=== PATIENT | male | born 1960 | race Caucasian/White ===

== ENCOUNTER → 2020-10-01 | Outpatient (CLI) | payer BC ==
--- NOTE | 2020-10-02 10:10 | CT ---
EXAMINATION TYPE: CT abdomen pelvis wo con DATE OF EXAM: 10/01/2020 COMPARISON: HISTORY: Rt side flank pain, possible kidney stone, inguinal lympadenopathy CT DLP: 1171 mGycm Automated exposure control for dose reduction was used. TECHNIQUE: Helical acquisition of images from the lung bases through the pelvis. FINDINGS: Lack of contrast may decrease sensitivity LUNG BASES: Minimal effusions are present. AORTA: No significant abnormality is appreciated. 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 Gallbladder is contracted.. PANCREAS: No significant abnormality is seen. SPLEEN: No significant abnormality is seen. ADRENALS: No significant abnormality is seen. KIDNEYS: Right renal mass is suspected measuring 5.6 cm punctate left renal calcifications are presen t, proximally 3 are noted REPRODUCTIVE ORGANS: prostate is enlarged, associated punctate calcification. URINARY BLADDER: There is a thickened wall present possibly due to chronic outlet obstruction, some punctate calcifications are present along the anterior wall. BOWEL: No significant abnormality is seen. FREE AIR: No Free Air is visible. ASCITES: None visible. PELVIC ADENOPATHY: None visualized. RETROPERITONEAL ADENOPATHY: No Retroperitoneal Adenopathy visible. OSSEOUS STRUCTURES: Degenerative disc changes are present especially in the lower lumbar spine, ther e is some associated facet arthropathy. Sclerotic rimmed lucency at the left sacroiliac joint within the ilium likely represents geode. IMPRESSION: FINDINGS ARE SUSPICIOUS FOR RIGHT RENAL MASS, CONSIDER RENAL CELL CARCINOMA, UROLOGY CONSULT. NONOBST RUCTIVE LEFT HYDRONEPHROSIS. ADDITIONAL FINDINGS ABOVE. Report relayed telephonically to the office o efe Baer at the time of interpretation via perfect serve.
== END | disposition home or self-care (01) ==
LOC: RADCTMAIN 18:18
PROVIDERS: ATTEND Family Medicine
DX: N20.0 Calculus of kidney (principal); K82.0 Obstruction of gallbladder; N40.0 Benign prostatic hyperplasia without lower urinary tract symptoms; N32.89 Other specified disorders of bladder; K76.89 Other specified diseases of liver
CPT/HCPCS: 74176

== ENCOUNTER → 2020-10-07 | Outpatient (CLI) | payer BC ==
--- NOTE | 2020-10-07 23:12 | CT ---
EXAMINATION TYPE: CT abdomen pelvis w con DATE OF EXAM: 10/07/2020 COMPARISON: 11/09/2020 INDICATION: Rt renal mass DLP: 1358 mGycm, Automated exposure control for dose reduction was used. CONTRAST: 100 mL of Isovue 300. Study performed with Oral Contrast TECHNIQUE: Axial images were obtained from above the diaphragm to the pubic rami in the axial plane a t 5 mm thick sections. Reconstructed images are reviewed on the computer in the coronal plane. FINDINGS: Limited CT sections are obtained the lung bases. The lung bases are clear. CT ABDOMEN: Liver: Multiple scattered small hypodensities within the liver may be small hepatic cysts. Spleen: Normal Pancreas: Normal Adrenal glands: The adrenal glands are normal. Gallbladder: Normal Kidneys: There is a 4.0 x 5.5 cm isodense mass within the right mid lateral kidney. This appears to w ashout is slightly greater rate than the renal cortex. This corresponds to the precontrast imaging on 10/01/2020. No hydronephrosis is present. No cysts are present. Delayed images were obtained thro ugh the kidneys. Aorta: Vascular calcification is within the aorta. Inferior vena cava: Normal. CT PELVIS: Loops of bowel within the abdomen and pelvis are normal. There are loops of bowel which are incom pletely distended or lack oral contrast limiting their evaluation. Appendix: Normal as visualized. Urinary bladder: Normal. Genitourinary structures: Prostate appears unremarkable Osseous structures: No suspicious lytic or sclerotic lesions. IMPRESSIONS: 1. 4.2 x 4.0 x 5.5 cm isodense mass within the mid lateral right kidney suspicious for neoplasm.
== END | disposition home or self-care (01) ==
LOC: RADCTMAIN 16:26
PROVIDERS: ATTEND Urology
DX: N28.89 Other specified disorders of kidney and ureter (principal); D41.01 Neoplasm of uncertain behavior of right kidney; Z88.2 Allergy status to sulfonamides
CPT/HCPCS: 74177; Q9967

== ENCOUNTER → 2020-11-02 | Outpatient (CLI) | payer BC ==
--- NOTE | 2020-11-02 21:21 | CT ---
EXAMINATION TYPE: CT chest w con DATE OF EXAM: 11/02/2020 COMPARISON: NONE HISTORY: ca staging, recent renal cancer dx CT DLP: 408.5 mGycm. Automated Exposure Control for Dose Reduction was Utilized. TECHNIQUE: CT scan of the thorax is performed following with IV Contrast, patient injected with 100 mL of Isovue 300. FINDINGS: LUNGS: Mild atelectatic change dependently in the bilateral lower lobes. No suspicious pulmonary no dules or masses. There is no pleural effusion or pneumothorax seen. The tracheobronchial tree is pat ent. MEDIASTINUM: There are no greater than 1 cm hilar or mediastinal lymph nodes. No cardiomegaly or pe ricardial effusion is seen. Two adjacent Subcentimeter left thyroid nodules coronal image 49 and 50 l ower pole level. OTHER: Contracted gallbladder. 2 mm nonobstructing calculus upper pole left kidney coronal image 55. IMPRESSION: No suspicious nodules or masses to suggest metastatic disease.
== END | disposition home or self-care (01) ==
LOC: RADCTMAIN 17:45
PROVIDERS: ATTEND Urology
DX: C64.9 Malignant neoplasm of unspecified kidney, except renal pelvis (principal); Z88.2 Allergy status to sulfonamides
CPT/HCPCS: 82565; 84520; 71260; 36415; Q9967

== ENCOUNTER → 2020-12-03 | Outpatient (CLI) | payer BC ==
[2020-12-03 10:06] LABS: Basophils # (A) 0.1 k/uL (0-0.2); Basophils % (A) 1 %; Eosinophils # (A) 0.1 k/uL (0-0.7); Eosinophils % (A) 2 %; HCT 53.4 % (39.0-53.0); HGB 17.6 gm/dL (13.0-17.5); Lymphocytes # (A) 1.5 k/uL (1.0-4.8); Lymphocytes % (A) 25 %; MCH 30.1 pg (25.0-35.0); MCV 91.2 fL (80.0-100.0); Mean Platelet Volume 8.2; Monocytes # (A) 0.4 k/uL (0-1.0); Monocytes % (A) 6 %; Neutrophils # (A) 3.9 k/uL (1.3-7.7); Neutrophils % (A) 65 %; Platelet Count 137 k/uL (150-450); RBC 5.85 m/uL (4.30-5.90); RDW 13.4 % (11.5-15.5); WBC 5.9 k/uL (3.8-10.6)
[2020-12-03 10:11] LABS: African American GFR (CKD) >90 (>60 ml/min/1.73 sqM); Anion Gap 7 mmol/L; Blood Urea Nitrogen 17 mg/dL (9-20); Calcium 8.7 mg/dL (8.4-10.2); Carbon Dioxide 24 mmol/L (22-30); Chloride 110 mmol/L (98-107); Glucose 112 mg/dL (74-99); Non-African American GFR(CKD) 82 (>60 ml/min/1.73 sqM); Potassium 4.7 mmol/L (3.5-5.1); Sodium 141 mmol/L (137-145)
--- NOTE | 2020-12-03 10:19 | XR ---
EXAMINATION TYPE: XR chest 2V DATE OF EXAM: 12/03/2020 COMPARISON: Correlation CT chest 11/02/2020 HISTORY: 60-year-old male preop before nephrectomy, kidney cancer. D41.01, Z01.818 TECHNIQUE: Frontal and lateral views FINDINGS: The cardiomediastinal silhouette, aorta, and pulmonary vasculature are within normal limits. Lungs an d pleural spaces are clear. IMPRESSION: No acute cardiopulmonary process.
== END | disposition home or self-care (01) ==
LOC: LABPAT 08:53
PROVIDERS: ATTEND Urology
DX: Z01.818 Encounter for other preprocedural examination (principal); D41.01 Neoplasm of uncertain behavior of right kidney; R53.83 Other fatigue
CPT/HCPCS: 36415; 71046; 80048; 85025; 93005

== ENCOUNTER 2020-12-10 10:26 | Inpatient (IN) | payer BC ==
[2020-12-02 11:07] VITALS: BMI 28.8
--- NOTE | 2020-12-09 22:07 | P.HPIHPCON ---
History of Present Illness H&P Date: 12/10/20 Chief Complaint: right renal mass Mr Guerra is a 60 yo female with hx of 5.5 cm right renal mass concerning for renal cell carcinoma. Discussed with him given the finding on CT it's highly concerning for renal cell carcinoma. Discussed with him based on review of CT nephron sparing surgery is not feasible. Discussed option of robotic radical nephrectomy vs open radical nephrectomy. Discussed the risk and benefit of each approach. He agreed to proceed with robotic right sided radical nephrectomy. Discussed the risk of bleeding, infection and injury to nearby organs. Discussed potential of need dialysis in the future. Also discussed potential this could be benign pathology. He understood all the risks and agreed to proceed with robotic assisted right radical nephrectomy. Consent for Procedure: I have explained the operation/procedure to the patient, including the risks, benefits, side effects, alternative therapies (including not receiving the proposed treatment or service), the likelihood of the patient achieving his/her goals, and potential recuperation problems for the procedure/sedation/analgesia, as well as any blood products, if indicated. I also explained to the patient the risks, benefits and side effects of the alternatives, as well as the risks related to not receiving the proposed procedure, care, treatment, or services. Past Medical History Past Medical History: Cancer, Prostate Disorder Additional Past Medical History / Comment(s): enlarged prostate, hx. kidney stones, rt kidney cancer History of Any Multi-Drug Resistant Organisms: None Reported Past Surgical History: Back Surgery Additional Past Surgical History / Comment(s): vasectomy reversal Past Anesthesia/Blood Transfusion Reactions: Previous Problems w/ Anesthesia Additional Past Anesthesia/Blood Transfusion Reaction / Comment(s): woke up too soon Smoking Status: Never smoker - Past Family History Mother Family Medical History: Cancer Father Family Medical History: Cancer Additional Family Medical History / Comment(s): pancreatic cancer age 60 Medications and Allergies Home Medications Medication Instructions Recorded Confirmed Type Doxazosin [Cardura] 4 mg PO HS 08/23/16 12/07/20 History Allergies Allergy/AdvReac Type Severity Reaction Status Date / Time Sulfa (Sulfonamide Allergy Rash/Hives, Verified 12/02/20 11:02 Antibiotics) shivering Surgical - Exam - General well developed, well nourished, no distress, no pain - Eyes PERRL, normal ocular movement - Respiratory normal expansion, normal respiratory effort Assessment and Plan Assessment: 60 yo male with right sided renal mass -OR for robotic radical nephrectomy on right
[~2020-12-10 10:26] MED LIST: DEXAMETHASONE SOD PHOSPHATE 4 MG/ML 1 ML VIAL IV ONE; LIDOCAINE 1% (10MG/ML) FOR IV START INTRADERMA PRN; ONDANSETRON 4 MG/2 ML VIAL IVP ONE; SCOPOLAMINE 1.5MG/72HR PATCH TRANSDERM ONE
[2020-12-10] MEDS: LACTATED RINGERS 1,000 ML IV SCH ×2 (11:05→11:06)
[2020-12-10] MEDS ORDERED: ROCURONIUM 10 MG/ML (10 ML VIAL) IV ONE (11:51)
[2020-12-10] MEDS ORDERED: MIDAZOLAM 2 MG/2 ML VIAL ONE (11:51)
[2020-12-10] MEDS ORDERED: NEOSTIGMINE 1 MG/ML 10 ML VIAL ONE (11:51)
[2020-12-10] MEDS ORDERED: HYDROmorphone (PF) 1 MG/ML ONE (11:51)
[2020-12-10] MEDS ORDERED: PROPOFOL 10 MG/ML 20 ML VIAL IV ONE (11:51)
[2020-12-10] MEDS ORDERED: GLYCOPYRROLATE 0.2 MG/ML 2 ML VIAL ONE (11:51)
[2020-12-10] MEDS ORDERED: fentaNYL (PF) 50 MCG/ML 2 ML AMP ONE (11:51)
[2020-12-10] MEDS ORDERED: LIDOCAINE 1% INJ 10MG/ML (20 ML MDV) ONE (11:51)
[2020-12-10] MEDS ORDERED: SUCCINYLCHOLINE CHLORIDE 100 MG/5 ML SYR IV ONE (11:51)
[2020-12-10] MEDS ORDERED: methocarbamoL 500 MG TAB PO PRN (12:05)
[2020-12-10] MEDS ORDERED: LIDOCAINE 2% INJ 20 MG/ML SQ ONE (13:08)
[2020-12-10] MEDS ORDERED: LACTATED RINGERS 1,000 ML IV ONE ×2 (14:33)
[2020-12-10] MEDS: HYDROmorphone 0.5 MG/0.5 ML SYRINGE IVP PRN ×3 (15:00→16:15)
[2020-12-10] MEDS: HEPARIN SODIUM,PORCINE 5,000 UNIT/ML 1 ML VIAL SQ SCH (17:39)
[2020-12-10] MEDS: D5-0.45% NACL WITH KCL 20MEQ/L 1,000 ML IV SCH (19:31)
[2020-12-10] MEDS: HYDROcodone/APAP 5-325MG 1 EACH TAB PO PRN (20:53)
[2020-12-10] MEDS ORDERED: DOXAZOSIN 4 MG TAB PO SCH (21:00)
[2020-12-11] MEDS: HEPARIN SODIUM,PORCINE 5,000 UNIT/ML 1 ML VIAL SQ SCH ×2 (00:19→08:07)
[2020-12-11] MEDS: D5-0.45% NACL WITH KCL 20MEQ/L 1,000 ML IV SCH ×2 (03:19→07:57)
[2020-12-11 06:41] LABS: HGB 15.7 gm/dL (13.0-17.5); MCH 30.3 pg (25.0-35.0); Mean Platelet Volume 8.1; Platelet Count 119 k/uL (150-450); RBC 5.17 m/uL (4.30-5.90); RDW 13.3 % (11.5-15.5); WBC 9.8 k/uL (3.8-10.6)
[2020-12-11 07:38] VITALS: BP 128/70; PULSE 56; RESP 17; TEMP 98.7
[2020-12-11] MEDS: HYDROcodone/APAP 5-325MG 1 EACH TAB PO PRN (08:09)
[2020-12-11 09:12] LABS: African American GFR (CKD) 50 (>60 ml/min/1.73 sqM); Anion Gap 4 mmol/L; Blood Urea Nitrogen 17 mg/dL (9-20); Calcium 8.2 mg/dL (8.4-10.2); Carbon Dioxide 27 mmol/L (22-30); Chloride 106 mmol/L (98-107); Glucose 131 mg/dL (74-99); Non-African American GFR(CKD) 43 (>60 ml/min/1.73 sqM); Potassium 4.1 mmol/L (3.5-5.1); Sodium 137 mmol/L (137-145)
--- NOTE | 2020-12-11 12:54 | P.DS ---
Providers Date of admission: 12/10/20 10:26 Attending physician: Dakota Guerra MD Primary care physician: [facility] Course: 60-year-old male with history of right-sided renal mass. He underwent a robotic-assisted laparoscopic right radical nephrectomy on December 10. He was admitted to the floor postoperatively. Please see op note dated December 10 for full surgery details. He had an uneventful postoperative course. His catheter was removed on postoperative day #1. He was discharged home on postop day #1. At time of discharge he was tolerating a diet, ambulating, pain was well- controlled, his abdominal examination and incision was benign. Plan - Discharge Summary Discharge Rx Participant: No New Discharge Prescriptions: New HYDROcodone/APAP 5-325MG [[place] 5-325] 1 tab PO Q6HR PRN 3 Days #12 tab PRN Reason: Pain methocarbamoL [Robaxin] 750 mg PO QID PRN #15 tab PRN Reason: Pain No Action Doxazosin [Cardura] 4 mg PO HS Discharge Medication List Doxazosin [Cardura] 4 mg PO HS 08/23/16 [History] HYDROcodone/APAP 5-325MG [[place] 5-325] 1 tab PO Q6HR PRN 3 Days #12 tab 12/11/20 [Rx] methocarbamoL [Robaxin] 750 mg PO QID PRN #15 tab 12/11/20 [Rx] Follow up Appointment(s)/Referral(s): Dakota Guerra MD [STAFF PHYSICIAN] - 10 Days Patient Instructions/Handouts: Pain Management After Surgery (DC), Laparoscopic Radical Nephrectomy (DC) Activity/Diet/Wound Care/Special Instructions: No heavy lifting or straining for 4 weeks You may shower tomorrow, no baths Increase fluid intake Discharge Disposition: HOME SELF-CARE
== END 2020-12-11 13:05 | disposition home or self-care (01) | DRG 658 ==
LOC: 2ORMAIN 10:26 → 4SSUR 16:46
PROVIDERS: ADMIT Urology; ATTEND Urology
PROC: 0TT04ZZ Resection of Right Kidney, Percutaneous Endoscopic Approach (ICD-10-PCS; principal; 2020-12-10 11:30)
PROC: 8E0W4CZ Robotic Assisted Procedure of Trunk Region, Percutaneous Endoscopic Approach (ICD-10-PCS; principal; 2020-12-10 11:30)
DX: C64.1 Malignant neoplasm of right kidney, except renal pelvis (principal); C61 Malignant neoplasm of prostate; Z79.899 Other long term (current) drug therapy; Z88.2 Allergy status to sulfonamides; Z98.890 Other specified postprocedural states; Z87.442 Personal history of urinary calculi; Z80.8 Family history of malignant neoplasm of other organs or systems
CPT/HCPCS: 80048; 85027; 86850; 86900; 86901; 88307

== ENCOUNTER 2020-12-12 05:40 | Emergency (ER) | payer BC ==
[2020-12-12 05:45] VITALS: TEMP 98
--- NOTE | 2020-12-12 06:38 | ED ---
Male Urogenital HPI - General Chief complaint: Urogenital Stated complaint: Urogenital Time Seen by Provider: 12/12/20 06:06 Source: patient, RN notes reviewed Mode of arrival: ambulatory Limitations: no limitations - History of Present Illness Initial comments: Patient is a 60-year-old male status post right radical nephrectomy. He stated that he had his surgery this past . He reported that he did have indwelling catheters in. Stated that last night he sat on the toilet for 6 hours trying to urinate with no luck. He reported a history of enlarged prostate. He said that he regularly wakes up at night and has to sit for a few minutes to be over the bathroom last night was different. She reported some suprapubic discomfort this morning. But had instant relief once catheter was inserted by nurse. Patient's surgical incisions look good with no signs or symptoms of infection She denied any pain post catheter insertion, fever, chil ls, fatigue, chest pain, shortness of breath, altered mental status, nausea, vomiting, diarrhea, constipation, dysuria. - Related Data Home Medications Medication Instructions Recorded Confirmed Doxazosin [Cardura] 4 mg PO HS 08/23/12/10/20 Previous Rx's Medication Instructions Recorded HYDROcodone/APAP 5-325MG [[place] 1 tab PO Q6HR PRN 3 Days #12 tab 12/11/20 5-325] methocarbamoL [Robaxin] 750 mg PO QID PRN #15 tab 12/11/20 Allergies Allergy/AdvReac Type Severity Reaction Status Date / Time Sulfa (Sulfonamide Allergy Rash/Hives, Verified 12/12/20 05:46 Antibiotics) shivering Review of Systems ROS Statement: Those systems with pertinent positive or pertinent negative responses have been documented in the HPI. ROS Other: All systems not noted in ROS Statement are negative. Past Medical History Past Medical History: Cancer, Prostate Disorder Additional Past Medical History / Comment(s): enlarged prostate, hx. kidney stones, rt kidney cancer History of Any Multi-Drug Resistant Organisms: None Reported Past Surgical History: Back Surgery Additional Past Surgical History / Comment(s): vasectomy reversal, right kidney removed Past Anesthesia/Blood Transfusion Reactions: Previous Problems w/ Anesthesia Additional Past Anesthesia/Blood Transfusion Reaction / Comment(s): woke up too soon Past Psychological History: No Psychological Hx Reported Smoking Status: Never smoker Past Alcohol Use History: None Reported Past Drug Use History: None Reported - Past Family History Mother Family Medical History: Cancer Father Family Medical History: Cancer Additional Family Medical History / Comment(s): pancreatic cancer age 60 General Exam Limitations: no limitations General appearance: alert, in no apparent distress Head exam: Present: atraumatic, normocephalic, normal inspection Eye exam: Present: normal appearance, PERRL, EOMI. Absent: scleral icterus, conjunctival injection, periorbital swelling ENT exam: Present: normal exam, mucous membranes moist Neck exam: Present: normal inspection. Absent: tenderness, meningismus, lymphadenopathy Respiratory exam: Present: normal lung sounds bilaterally. Absent: respiratory distress, wheezes, rales, rhonchi, stridor Cardiovascular Exam: Present: regular rate, normal rhythm, normal heart sounds. Absent: systolic murmur, diastolic murmur, rubs, gallop, clicks GI/Abdominal exam: Present: soft, normal bowel sounds. Absent: distended, tenderness, guarding, rebound, rigid exam: Present: normal inspection Extremities exam: Present: normal inspection, full ROM, normal capillary refill. Absent: tenderness, pedal edema, joint swelling, calf tenderness Psychiatric exam: Present: normal affect, normal mood Skin exam: Present: other (Surgical incisionsunder symptoms of infection on abdomen) Course Vital Signs 12/12/20 12/12/20 05:43 06:53 Temperature 98 F Pulse Rate 120 H 89 Respiratory 19 Rate Blood Pressure 112/70 O2 Sat by Pulse 98 Oximetry Medical Decision Making - Medical Decision Making 60-year-old male status post right radical nephrectomy. Catheter inserted. UA collected and sent for analysis. CBC CMP ordered. General surgery consult and for follow-up due to issues 2 days post surgery. General surgery noted to send patient home with [place] and leg bag and to follow- up with surgeon on Monday. - Lab Data Result diagrams: 12/12/20 06:53 12/12/20 06:53 Lab Results 12/12/20 12/12/20 12/12/20 Range/Units 06:31 06:53 06:53 WBC 8.6 (3.8-10.6) k/uL RBC 5.35 (4.30-5.90) m/uL Hgb 16.1 (13.0-17.5) gm/dL Hct 47.1 (39.0-53.0) % MCV 88.0 (80.0-100.0) fL MCH 30.1 (25.0-35.0) pg MCHC 34.3 (31.0-37.0) g/dL RDW 13.2 (11.5-15.5) % Plt Count 122 L (150-450) k/uL MPV 8.2 Neutrophils % 83 % Lymphocytes % 8 % Monocytes % 7 % Eosinophils % 1 % Basophils % 1 % Neutrophils # 7.1 (1.3-7.7) k/uL Lymphocytes # 0.7 L (1.0-4.8) k/uL Monocytes # 0.6 (0-1.0) k/uL Eosinophils # 0.1 (0-0.7) k/uL Basophils # 0.1 (0-0.2) k/uL Sodium 137 (137-145) mmol/L Potassium 4.2 (3.5-5.1) mmol/L Chloride 105 (98-107) mmol/L Carbon Dioxide 26 (22-30) mmol/L Anion Gap 6 mmol/L BUN 22 H (9-20) mg/dL Creatinine 1.64 H (0.66-1.25) mg/dL Est GFR (CKD-EPI)AfAm 51 (>60 ml/min/1.73 sqM) Est GFR (CKD-EPI)NonAf 45 (>60 ml/min/1.73 sqM) Glucose 137 H (74-99) mg/dL Calcium 8.7 (8.4-10.2) mg/dL Total Bilirubin 1.3 (0.2-1.3) mg/dL AST 28 (17-59) U/L ALT 28 (4-49) U/L Alkaline Phosphatase 48 (38-126) U/L Total Protein 6.8 (6.3-8.2) g/dL Albumin 3.8 (3.5-5.0) g/dL Urine Color Yellow Urine Appearance Clear (Clear) Urine pH 5.5 (5.0-8.0) Ur Specific Mathews 1.014 (1.001-1.035) Urine Protein Trace H (Negative) Urine Glucose (UA) Negative (Negative) Urine Ketones 1+ H (Negative) Urine Blood Large H (Negative) Urine Nitrite Negative (Negative) Urine Bilirubin Negative (Negative) Urine Urobilinogen <2.0 (<2.0) mg/dL Ur Leukocyte Esterase Negative (Negative) Urine RBC 7 H (0-5) /hpf Urine WBC 2 (0-5) /hpf Urine Bacteria Rare H (None) /hpf Urine Mucus Rare H (None) /hpf Disposition Clinical Impression: Acute retention of urine, Benign prostatic hyperplasia with urinary obstruction and other lower urinary tract symptoms Disposition: HOME SELF-CARE Instructions (If sedation given, give patient instructions): Urinary Retention in Men (ED), [place] Catheter Placement and Care (ED) Additional Instructions: The patient instructed to come back to ER if symptoms worsen. Patient instructed to follow-up with general surgeon on Monday. Keep [place] with leg bag in until Monday The patient instructed on how to use this leg bag. Is patient prescribed a controlled substance at d/c from ED?: No Referrals: Jonathon Baer MD [Primary Care Provider] - 1-2 days Dakota Guerra MD [STAFF PHYSICIAN] - 1-2 days
[2020-12-12 06:46] LABS: Appearance,Urine Clear (Clear); Bacteria,Urine Rare /hpf; Bilirubin,Urine Negative (Negative); Blood,Urine Large (Negative); Color,Urine Yellow; Glucose,Urine (UA) Negative (Negative); Ketones,Urine 1+ (Negative); Leukocyte Esterase,Urine Negative (Negative); Mucus,Urine Rare /hpf; Nitrite,Urine Negative (Negative); PH, Urine 5.5 (5.0-8.0); Protein,Urine Trace (Negative); RBC,Urine 7 /hpf (0-5); Specific Gravity,Urine 1.014 (1.001-1.035); Urobilinogen,Urine <2.0 mg/dL (<2.0); WBC,Urine 2 /hpf (0-5)
[2020-12-12 07:09] LABS: Basophils # (A) 0.1 k/uL (0-0.2); Basophils % (A) 1 %; Eosinophils # (A) 0.1 k/uL (0-0.7); Eosinophils % (A) 1 %; HCT 47.1 % (39.0-53.0); HGB 16.1 gm/dL (13.0-17.5); Lymphocytes # (A) 0.7 k/uL (1.0-4.8); Lymphocytes % (A) 8 %; MCH 30.1 pg (25.0-35.0); MCHC 34.3 g/dL (31.0-37.0); Mean Platelet Volume 8.2; Monocytes # (A) 0.6 k/uL (0-1.0); Monocytes % (A) 7 %; Neutrophils # (A) 7.1 k/uL (1.3-7.7); Neutrophils % (A) 83 %; Platelet Count 122 k/uL (150-450); RBC 5.35 m/uL (4.30-5.90); RDW 13.2 % (11.5-15.5); WBC 8.6 k/uL (3.8-10.6)
[2020-12-12 07:25] LABS: Albumin 3.8 g/dL (3.5-5.0); Calcium 8.7 mg/dL (8.4-10.2); Potassium 4.2 mmol/L (3.5-5.1); Total Bilirubin 1.3 mg/dL (0.2-1.3); Total Protein 6.8 g/dL (6.3-8.2)
[2020-12-12 08:00] VITALS: BP 147/85; PULSE 72; RESP 18
== END 2020-12-12 08:11 | disposition home or self-care (01) ==
LOC: EC 05:40
DX: N40.1 Benign prostatic hyperplasia with lower urinary tract symptoms (principal); N13.8 Other obstructive and reflux uropathy; R33.8 Other retention of urine; Z79.899 Other long term (current) drug therapy; Z88.2 Allergy status to sulfonamides; Z85.528 Personal history of other malignant neoplasm of kidney; Z90.5 Acquired absence of kidney
CPT/HCPCS: 36415; 51702; 80053; 81001; 85025; 99283

== ENCOUNTER → 2021-06-07 | Outpatient (CLI) | payer BC ==
--- NOTE | 2021-06-08 08:00 | XR ---
EXAMINATION TYPE: XR chest 2V DATE OF EXAM: 06/07/2021 COMPARISON: 12/03/2020 INDICATION: Neoplasm of kidney TECHNIQUE: Frontal and lateral views of the chest are obtained. FINDINGS: The heart size is normal. The pulmonary vasculature is normal. The lungs are clear. IMPRESSION: 1. No acute pulmonary process.
--- NOTE | 2021-06-08 22:31 | CT ---
EXAMINATION TYPE: CT abdomen pelvis wo con DATE OF EXAM: 06/07/2021 COMPARISON: 10/07/2020 INDICATION: Neoplasm of kidney DLP: 919 2 mGycm, Automated exposure control for dose reduction was used. CONTRAST: 0 mL of Isovue 300. Study performed with Oral Contrast TECHNIQUE: Axial images were obtained from above the diaphragm to the pubic rami in the axial plane a t 5 mm thick sections. Reconstructed images are reviewed on the computer in the coronal plane. FINDINGS: Limited CT sections are obtained the lung bases. The lung bases are clear. Some coronary artery nadege cification is present. CT ABDOMEN: Liver: Couple small cysts or the superior right lobe liver and within the anterior right lobe liver. A cyst is adjacent to the gallbladder fossa. This measures 2 cm. Spleen: Normal Pancreas: Normal Adrenal glands: The adrenal glands are normal. Gallbladder: Normal Kidneys: No masses are evident. No hydronephrosis is present. No cysts are present. There is a 0.2 cm nonobstructing stone at the superior pole left kidney. Very subtle calcifications at the cortical medullary junction of the posterior mid to inferior left kidney. Right kidney is absent. No recurren t masses in the renal bed are evident. Aorta: Vascular calcification is within the aorta. Inferior vena cava: Flattened which can be related to patient volume status Limited CT PELVIS: Loops of bowel within the abdomen and pelvis are normal. There are loops of bowel which are incom pletely distended or lack oral contrast limiting their evaluation. Appendix: Normal as visualized. Osseous structures: No suspicious lytic or sclerotic lesions. There is a well-circumscribed lytic are a adjacent to the left sacroiliac joint within the iliac wing. Facet degenerative changes are present . No suspicious expansile lesions are identified. IMPRESSIONS: 1. No suspicious changes for metastatic or recurrent renal neoplasia.
== END | disposition home or self-care (01) ==
LOC: RADCTMAIN 16:53
PROVIDERS: ATTEND Urology
DX: C64.9 Malignant neoplasm of unspecified kidney, except renal pelvis (principal)
CPT/HCPCS: 36415; 71046; 74150; 74176; 82565; 84520

== ENCOUNTER → 2021-06-21 | Outpatient (CLI) | payer BC ==
[2021-06-21 16:12] LABS: African American GFR (CKD) 62.4 (60.0-200.0); Non-African American GFR(CKD) 53.8 (60.0-200.0)
[2021-06-21 16:21] LABS: Prostate Specific Antigen 6.9 ng/mL (0.0-4.5)
== END | disposition home or self-care (01) ==
LOC: LABWHC1 08:49
PROVIDERS: ATTEND Urology
DX: C64.9 Malignant neoplasm of unspecified kidney, except renal pelvis (principal)
CPT/HCPCS: 36415; 82565; 84153; 84520

== ENCOUNTER → 2021-12-17 | Outpatient (CLI) | payer BC ==
--- NOTE | 2021-12-17 15:20 | US ---
EXAMINATION TYPE: US groin RT DATE OF EXAM: 12/17/2021 COMPARISON: NONE CLINICAL HISTORY: R19.00 Groin mass, K40.90 R inguinal hernia. Patient presents with two palpable are as in the right groin. Patient states one has been there for over a year and doesn't feel that it has increased in size. Patient had right kidney removed last year due to carcinoma; patient was worrisom e that this was correlated to renal carcinoma. Ordering physician requested to scan at lump as well as assess for inguinal hernia. Scanned right groin at area of palpables; two slightly hyperechoic tissue areas that represent possib le lipomas measuring (1): 3.1 x 0.8 x 1.8 cm and (2): 1.3 x 0.6 x 1.0 cm. No evidence of inguinal hernia IMPRESSION: 1. Findings appear more suggestive for subcutaneous lipomas. Correlate with the clinical findings. 2. Inguinal adenopathy is not identified. 3. No suspicious inguinal hernia.
== END | disposition home or self-care (01) ==
LOC: RADUSWWP 14:45
PROVIDERS: ATTEND Family Medicine
DX: K40.90 Unilateral inguinal hernia, without obstruction or gangrene, not specified as recurrent (principal); R19.00 Intra-abdominal and pelvic swelling, mass and lump, unspecified site

== ENCOUNTER → 2022-02-28 | Outpatient (CLI) | payer BC ==
[2022-02-28 22:57] LABS: African American GFR (CKD) 56.6 (60.0-200.0); Blood Urea Nitrogen 22.1 mg/dL (9.0-27.0); Non-African American GFR(CKD) 48.8 (60.0-200.0)
== END | disposition home or self-care (01) ==
LOC: LABWHC1 15:18
PROVIDERS: ATTEND Orthopaedic Surgery Orthopaedic Surgery of the Spine
DX: M54.16 Radiculopathy, lumbar region (principal); M79.18 Myalgia, other site; R53.1 Weakness; M51.36 Other intervertebral disc degeneration, lumbar region
CPT/HCPCS: 36415; 82565; 84520

== ENCOUNTER → 2022-06-22 | Outpatient (CLI) | payer BC | END | disposition home or self-care (01) | LOC: LABWHC1 10:45 | PROVIDERS: ATTEND Urology | DX: R97.20 Elevated prostate specific antigen [PSA] (principal) | CPT/HCPCS: 36415; 84153 ==

== ENCOUNTER → 2022-06-23 | Outpatient (CLI) | payer BC ==
--- NOTE | 2022-06-23 16:33 | XR ---
EXAMINATION TYPE: XR chest 2V DATE OF EXAM: 06/23/2022 4:28 PM COMPARISON: Chest radiographs from 06/07/2021. TECHNIQUE: XR chest 2V Frontal and lateral views of the chest. CLINICAL INDICATION:Male, 61 years old with history of C64.9 MALIGNANT NEOPLASM OF UNSP KIDNEY, EXCEP T RE; FINDINGS: Lungs/Pleura: There is no evidence of pleural effusion, focal consolidation, or pneumothorax. Pulmonary vascularity: Unremarkable. Heart/mediastinum: Cardiomediastinal silhouette is unremarkable. Musculoskeletal: No acute osseous pathology. IMPRESSION: No acute cardiopulmonary disease/process.
--- NOTE | 2022-06-23 16:55 | CT ---
EXAMINATION TYPE: CT abdomen pelvis wo con CT DLP: 774.10 mGycm, Automated exposure control for dose reduction was used. DATE OF EXAM: 06/23/2022 4:22 PM COMPARISON: CT abdomen pelvis most recent from 06/07/2021 . CLINICAL INDICATION:Male, 61 years old with history of C64.9 MALIGNANT NEOPLASM OF UNSP KIDNEY, EXCEP T RE; hx of RT kidney ca and removal TECHNIQUE: Standard CT of the abdomen and pelvis without IV or oral contrast. Lack of IV or oral co ntrast limits evaluation of solid and hollow organ viscera. Coronal and sagittal reformats were perfo rmed. FINDINGS: LOWER CHEST: Coronary artery calcification. Lung bases are clear. ABDOMEN LIVER: Multiple subcentimeter hypodensities within the liver are stable and too small accurately day acterize. Stable cyst adjacent to the gallbladder measuring up to 2 cm. GALLBLADDER AND BILE DUCTS: Unremarkable. PANCREAS: Unremarkable noncontrast appearance. SPLEEN: Unremarkable noncontrast appearance. ADRENAL GLANDS: Unremarkable noncontrast appearance. KIDNEYS AND URETERS: Postsurgical changes from right nephrectomy. No suspicious soft tissue in the ne phrectomy bed to suggest local recurrence. No hydronephrosis involving the left kidney. Nonobstructi ve left renal calculi measuring up to 2 mm. PELVIS BLADDER: Incompletely distended but grossly unremarkable. REPRODUCTIVE: Prostate is enlarged in size measuring 6.6 cm in transverse dimension. ABDOMEN & PELVIS STOMACH AND BOWEL: Stomach and duodenum are unremarkable. No focal wall thickening or surrounding inf lammatory changes. The appendix is within normal limits. No evidence of bowel obstruction. PERITONEUM: No evidence of pneumoperitoneum or free fluid. VASCULATURE: Mild atherosclerotic calcifications are present throughout the abdominal aorta and its b ranches. No evidence of aortic aneurysm. MUSCULOSKELETAL: No acute osseous abnormalities. No suspicious osseous lesions. Degenerative changes of visualized spine most pronounced at L4-L5. LYMPH NODES: No gross evidence for lymphadenopathy. SOFT TISSUE/ABDOMINAL WALL: Small fat filled umbilical hernia. IMPRESSION: Postsurgical changes from right nephrectomy without evidence for local recurrence or metastatic disea se.
== END | disposition home or self-care (01) ==
LOC: RADCTMAIN 16:00
PROVIDERS: ATTEND Urology
DX: C64.9 Malignant neoplasm of unspecified kidney, except renal pelvis (principal)
CPT/HCPCS: 71046; 74176

== ENCOUNTER → 2023-05-31 | Outpatient (CLI) | payer BC ==
--- NOTE | 2023-06-01 07:55 | XR ---
EXAMINATION TYPE: XR chest 2V DATE OF EXAM: 05/31/2023 4:32 PM COMPARISON: Chest radiographs from 12/29/2022 TECHNIQUE: XR chest 2V Frontal and lateral views of the chest. CLINICAL INDICATION:Male, 62 years old with history of C64.1; FINDINGS: Lungs/Pleura: There is no evidence of pleural effusion, focal consolidation, or pneumothorax. Pulmonary vascularity: Unremarkable. Heart/mediastinum: Cardiomediastinal silhouette is unremarkable. Musculoskeletal: No acute osseous pathology. IMPRESSION: No acute cardiopulmonary disease/process. No significant change from prior examination.
--- NOTE | 2023-06-01 10:40 | CT ---
EXAMINATION TYPE: CT abdomen pelvis wo con DATE OF EXAM: 05/31/2023 COMPARISON: 06/23/2022, 10/01/2020 HISTORY: right side renal ca. CT DLP: 718.1 mGycm Automated exposure control for dose reduction was used. TECHNIQUE: Helical acquisition of images was performed from the lung bases through the pelvis. FINDINGS: LUNG BASES: No significant abnormality is appreciated. LIVER/GB: Multiple subcentimeter hypodensities within the liver are stable and too small accurately c haracterize. Stable cyst adjacent to the gallbladder measuring up to 2 cm. PANCREAS: No significant abnormality is seen. SPLEEN: No significant abnormality is seen. ADRENALS: No significant abnormality is seen. KIDNEYS: Postsurgical changes from right nephrectomy. No suspicious soft tissue in the nephrectomy be d to suggest local recurrence Left kidney demonstrates no hydronephrosis. Nonobstructive two left renal calculi measuring up to 2 m m. ADENOPATHY: None visualized. OSSEOUS STRUCTURES: Multilevel hypertrophic and degenerative change. No destructive lesions. Stable w ell-circumscribed lucent lesion in the left iliac bone unchanged dating back to multiple prior exams including 10/01/2020 and therefore likely benign. Hip arthropathy. BOWEL: No significant abnormality is seen. Small hiatal hernia. OTHER: Prostate is markedly enlarged measuring 6.6 cm in greatest axis. Bladder wall is thickened and contains a calcification anteriorly. Bladder is nondistended. IMPRESSION: 1. POSTSURGICAL CHANGES COMPATIBLE WITH PRIOR RIGHT NEPHRECTOMY WITH NO EVIDENCE OF RECURRENT DISEASE OR METASTASES. 2. SMALL BLADDER CALCULUS WITH MILD BLADDER WALL THICKENING CORRELATE FOR CYSTITIS. 3. MARKED PROSTATE ENLARGEMENT.
== END | disposition home or self-care (01) ==
LOC: RADCTMAIN 16:06
PROVIDERS: ATTEND Urology
DX: C64.1 Malignant neoplasm of right kidney, except renal pelvis (principal); N40.0 Benign prostatic hyperplasia without lower urinary tract symptoms; N21.0 Calculus in bladder; Z90.5 Acquired absence of kidney; Z98.890 Other specified postprocedural states
CPT/HCPCS: 71046; 74176

== ENCOUNTER → 2023-06-01 | Outpatient (CLI) | payer BC | END | disposition home or self-care (01) | LOC: LABWHC1 11:43 | PROVIDERS: ATTEND Urology | DX: C64.1 Malignant neoplasm of right kidney, except renal pelvis (principal) | CPT/HCPCS: 36415; 84153 ==

== ENCOUNTER → 2023-06-26 | Outpatient (CLI) | payer BC ==
--- NOTE | 2023-06-26 13:47 | US ---
EXAMINATION TYPE: US venous doppler duplex LE LT DATE OF EXAM: 06/26/2023 9:07 AM COMPARISON: NONE CLINICAL INDICATION: Male, 62 years old with history of I82.402 ACUTE EMBOLISM AND THROMBOSIS UNSP D EEP VEIN; HX of DVT on blood thinners. SIDE PERFORMED: Left TECHNIQUE: The lower extremity deep venous system is examined utilizing real time linear array sonog goyo with graded compression, doppler sonography and color-flow sonography. VESSELS IMAGED: Common Femoral Vein Deep Femoral Vein Greater Saphenous Vein * Femoral Vein Popliteal Vein Small Saphenous Vein * Proximal Calf Veins (* superficial vessels) Left Leg: Chronic DVT still visualized distal Femoral Vein extending into Popliteal Vein. IMPRESSION: Chronic DVT still visualized distal Femoral Vein extending into Popliteal Vein. Findings similar to .
== END | disposition home or self-care (01) ==
LOC: RADUSWWP 08:50
PROVIDERS: ATTEND Family Medicine
DX: I82.512 Chronic embolism and thrombosis of left femoral vein (principal); I82.532 Chronic embolism and thrombosis of left popliteal vein; I82.402 Acute embolism and thrombosis of unspecified deep veins of left lower extremity

== ENCOUNTER → 2023-11-15 | Outpatient (CLI) | payer BC ==
[2023-11-15 19:14] LABS: Basophils # (A) 0.04 X 10*3/uL (0.00-0.10); Basophils % (A) 0.7 %; Eosinophils # (A) 0.14 X 10*3/uL (0.04-0.35); Eosinophils % (A) 2.4 %; HCT 49.6 % (39.6-50.0); HGB 16.1 g/dL (13.0-17.0); Lymphocytes # (A) 1.47 X 10*3/uL (0.90-5.00); Lymphocytes % (A) 24.8 %; MCH 29.4 pg (27.0-32.0); MCHC 32.5 g/dL (32.0-37.0); MCV 90.7 FL (80.0-97.0); Mean Platelet Volume 11.1 FL (9.5-12.2); Monocytes # (A) 0.44 X 10*3/uL (0.20-1.00); Monocytes % (A) 7.4 %; NRBC Per 100 WBC 0 X 10*3/uL (0.00-0.01); Neutrophils # (A) 3.82 X 10*3/uL (1.80-7.70); Neutrophils % (A) 64.4 %; Platelet Count 147 X 10*3/uL (140-440); RBC 5.47 X 10*6/uL (4.40-5.60); RDW 13.4 % (11.5-14.5); WBC 5.93 X 10*3/uL (4.50-10.00)
[2023-11-15 19:29] LABS: BUN/Creat Ratio 18.77 Ratio (12.00-20.00); Blood Urea Nitrogen 24.4 mg/dL (9.0-27.0); Chloride 108 mmol/L (96-109); Glucose 98 mg/dL (70-110); Potassium 4.5 mmol/L (3.5-5.5); Sodium 143 mmol/L (135-145)
[2023-11-15 20:28] LABS: Appearance,Urine Clear (Clear); Bilirubin,Urine Negative (Negative); Blood,Urine Negative (Negative); Color,Urine Yellow (Yellow); Ketones,Urine Negative (Negative); Nitrite,Urine Negative (Negative); Specific Gravity,Urine 1.018 (1.001-1.030); Urobilinogen,Urine 0.2 E.U./DL
== END | disposition home or self-care (01) ==
LOC: LABPAT 11:25
PROVIDERS: ATTEND Urology
DX: Z01.812 Encounter for preprocedural laboratory examination (principal); N40.1 Benign prostatic hyperplasia with lower urinary tract symptoms; N13.8 Other obstructive and reflux uropathy; R31.29 Other microscopic hematuria
CPT/HCPCS: 80048; 81003; 85025; 86850; 86900; 86901; 87086

== ENCOUNTER 2023-11-23 05:33 | Day surgery (SDC) | payer BC ==
--- NOTE | 2023-11-14 15:14 | P.HPIHPCON ---
History of Present Illness H&P Date: 11/14/23 Chief Complaint: BPH This is a 63 male with history of 150 g prostate. He is having obstructive urinary symptoms despite of medical therapy. Option of a robotic simple prostatectomy versus a HOLEP was discussed with him in details. He agreed to proceed with a robotic simple prostatectomy. Aware of the risk which includes but not limited to bleeding, infection, injury to nearby organ. Discussed risk of urinary incontinence, retrograde ejaculation and erectile dysfunction. Discussed potential persistent of overactive bladder symptoms. He understood all the risk and agreed to proceed Consent for Procedure: I have explained the operation/procedure to the patient, including the risks, benefits, side effects, alternative therapies (including not receiving the proposed treatment or service), the likelihood of the patient achieving his/her goals, and potential recuperation problems for the procedure/sedation/analgesia, as well as any blood products, if indicated. I also explained to the patient the risks, benefits and side effects of the alternatives, as well as the risks related to not receiving the proposed procedure, care, treatment, or services. Past Medical History Past Medical History: Cancer, Prostate Disorder Additional Past Medical History / Comment(s): enlarged prostate, hx. kidney stones, rt kidney cancer History of Any Multi-Drug Resistant Organisms: None Reported Past Surgical History: Back Surgery Additional Past Surgical History / Comment(s): vasectomy reversal, right kidney removed Past Anesthesia/Blood Transfusion Reactions: Previous Problems w/ Anesthesia Additional Past Anesthesia/Blood Transfusion Reaction / Comment(s): woke up too soon Past Psychological History: No Psychological Hx Reported Smoking Status: Never smoker Past Alcohol Use History: None Reported Past Drug Use History: None Reported - Past Family History Mother Family Medical History: Cancer Father Family Medical History: Cancer Additional Family Medical History / Comment(s): pancreatic cancer age 60 Medications and Allergies Home Medications Medication Instructions Recorded Confirmed Type Doxazosin [Cardura] 4 mg PO HS 08/23/16 12/29/22 History Apixaban [Eliquis Starter Pack 10 mg PO DIRECTED 30 Days #1 12/29/22 Rx (for VTE)] each Atorvastatin [Lipitor] 20 mg PO HS 12/29/22 12/29/22 History Allergies Allergy/AdvReac Type Severity Reaction Status Date / Time Sulfa (Sulfonamide Allergy Rash/Hives, Verified 12/29/22 18:16 Antibiotics) shivering Surgical - Exam - General no distress, no pain - Eyes normal ocular movement, no pale - ENT normal nares, normal mucosa - Respiratory normal expansion, normal respiratory effort - Abdomen Abdomen: soft, non tender Assessment and Plan Assessment: OR for robotic simple prostatectomy
[2023-11-16 14:38] VITALS: BMI 28.5
[~2023-11-23 05:33] MED LIST changes: -DEXAMETHASONE SOD PHOSPHATE 4 MG/ML 1 ML VIAL IV ONE; +HEPARIN SODIUM,PORCINE 5,000 UNIT/ML 1 ML VIAL SQ PRN; -LIDOCAINE 1% (10MG/ML) FOR IV START INTRADERMA PRN; -ONDANSETRON 4 MG/2 ML VIAL IVP ONE; -SCOPOLAMINE 1.5MG/72HR PATCH TRANSDERM ONE
[2023-11-23] MEDS ORDERED: DEXAMETHASONE SOD PHOSPHATE 4 MG/ML 1 ML VIAL IV ONE (05:46)
[2023-11-23] MEDS ORDERED: SCOPOLAMINE 1 MG/72 HR PATCH TRANSDERM ONE (05:46)
[2023-11-23] MEDS ORDERED: ONDANSETRON 4 MG/2 ML VIAL IVP ONE (05:46)
[2023-11-23] MEDS: LACTATED RINGERS 1,000 ML IV SCH (06:24)
[2023-11-23] MEDS ORDERED: GLYCOPYRROLATE 0.2 MG/ML 2 ML VIAL ONE (06:59)
[2023-11-23] MEDS ORDERED: SUCCINYLCHOLINE CHLORIDE 200 MG/10 ML VIAL IV ONE (06:59)
[2023-11-23] MEDS ORDERED: fentaNYL (PF) 50 MCG/ML 2 ML AMP ONE (06:59)
[2023-11-23] MEDS ORDERED: HYDROmorphone (PF) 1 MG/ML ONE (06:59)
[2023-11-23] MEDS ORDERED: LIDOCAINE 1% INJ 10MG/ML (20 ML MDV) ONE (06:59)
[2023-11-23] MEDS ORDERED: NEOSTIGMINE 1 MG/ML 10 ML VIAL ONE (06:59)
[2023-11-23] MEDS ORDERED: PROPOFOL 10 MG/ML 20 ML VIAL IV ONE (06:59)
[2023-11-23] MEDS ORDERED: ROCURONIUM 10 MG/ML (5 ML VIAL) IV ONE (06:59)
[2023-11-23] MEDS ORDERED: MIDAZOLAM 2 MG/2 ML VIAL ONE (06:59)
[2023-11-23] MEDS ORDERED: MIDAZOLAM 2 MG/2 ML VIAL IV PRN (07:00)
[2023-11-23] MEDS ORDERED: BUPIVACAINE (PF) 0.25% 30 ML VIAL SQ ONE ×2 (08:14→10:18)
[2023-11-23] MEDS ORDERED: ONDANSETRON 4 MG/2 ML VIAL IVP PRN (10:24)
[2023-11-23] MEDS ORDERED: HYDROcodone/APAP 5-325MG 1 EACH TAB PO PRN (10:25)
[2023-11-23] MEDS: HYDROmorphone 0.5 MG/0.5 ML SYRINGE IVP PRN ×2 (10:36→12:54)
[2023-11-23] MEDS ORDERED: IV FLUID CONTINUATION 1,000 ML IV ONE (12:30)
[2023-11-23] MEDS: D5-0.45% NACL WITH KCL 20MEQ/L 1,000 ML IV SCH ×2 (15:51→23:21)
[2023-11-23] MEDS: HEPARIN SODIUM,PORCINE 5,000 UNIT/ML 1 ML VIAL SQ SCH ×2 (15:59→23:22)
--- NOTE | 2023-11-23 16:57 | P.OP ---
Date of Procedure: 11/23/23 Preoperative Diagnosis: BPH Postoperative Diagnosis: Same Procedure(s) Performed: Robotic simple prostatectomy Implants: none Anesthesia: REYNAA Surgeon: Dakota Guerra Estimated Blood Loss (ml): 150 Pathology: other (Prostate adenoma) Condition: stable Disposition: PACU Indications for Procedure: This is a 63 male with history of 150 g prostate. He is having obstructive urinary symptoms despite of medical therapy. Option of a robotic simple prostatectomy versus a HOLEP was discussed with him in details. He agreed to proceed with a robotic simple prostatectomy. Aware of the risk which includes but not limited to bleeding, infection, injury to nearby organ. Discussed risk of urinary incontinence, retrograde ejaculation and erectile dysfunction. Discussed potential persistent of overactive bladder symptoms. He understood all the risk and agreed to proceed Description of Procedure: After preoperative antibiotics were started, the patient was taken to the operating room. Anesthesia was induced and the patient was placed in a supine position with adequate padding of the pressure points, shoulders, back, legs and arms. He was then prepped and draped in the standard fashion. A critical pause was performed using two patient identifiers. A 16F cardona catheter was placed to gravity drainage. A pneumoperitoneum was obtained using a Veress needle, after pneumoperitoneum was obtained a 8 mm camera port was placed along the left lower quadrant away from the midline incision. At this point a robotic camera was placed through the port patient did have adhesions along the midline, those were taken down sharply using the laparoscopic scissors. Next under vision the camera port was placed in the midline Under direct vision a 8mm robotic ports was placed lateral to each rectus slightly below the camera port. The left iliac fossa 8mm port was placed. The right elder assistant right iliac fossa 12mm port and right paramedian 5mm portwere placed. After the patient was placed in the trendelenberg position, the robot was then docked to the 8mm robotic ports and then each robotic arm and tower was checked in relation to the patient's legs and hands to avoid inadvertent compression. The peritoneal cavity was inspected. Adhesions were taken down along the left lower quadrant An inverted U-shaped incision began laterally to the left medial umbilical ligament and extended high across the midline to the right umbilical ligament. The limbs of the "U" extended to the level of the vasa on both sides. We next developed the preperitoneal space and the space of Retzius. Cautery was used to dissected the bladder away from the prostate, the incision was made in close proximity to the prostate, and incision was extended laterally and at this point the plane between the adenoma and the surgical capsule is identified. Both ureteral orifices were identified and neither was injured during the dissection . The adenoma was dissected off of the capsule by combination of blunt dissection and minimum cautery. dissection was initially started along the anterior surface and posterior surface of adenoma, and this was carried laterally. The dissection was carried to the apex, at this point the urethral-prostatic junction was visualized and the prostate was transected at the junction. Prostate adenoma was placed in an endocatch bag . A 9and 9inch 3-0 V-Lock suture was used to anastomose the urethra and bladder, starting at the 6:00 posterior position. Mucosa was secured in every stitch, to ensure a mucosa to mucosa anastomosis. The stitch was regularly cinched and the anastomosis tightened. . The 20 Fr Cardona catheter was advanced, the bladder filled, and the anastomosis was tested. Anastomsis was watertight at 150 mL. balloon was inflated to 10 mL The robot was undocked. specimen was extracted from the supraumbilical incision. The periumbilical fascia was closed with 1-0-PDS suture in figure of 8 fashion. All ports were closed with a subcuticular 4-0 monocryl and Dermabond. Sponge, instrument, and needle counts were correct at the end of the case x2. The patient tolerated the surgery well and without complication. He awoke without difficulty and was taken to the recovery room in stable condition
[2023-11-23] MEDS: KETOROLAC 15 MG/ML 1 ML VIAL IVP SCH ×2 (18:31→23:22)
[2023-11-23] MEDS ORDERED: ATORVASTATIN 20 MG TAB PO SCH (21:00)
[2023-11-24 01:47] VITALS: PULSE 58
[2023-11-24] MEDS: LACTATED RINGERS 1,000 ML IV SCH (03:42)
[2023-11-24] MEDS: D5-0.45% NACL WITH KCL 20MEQ/L 1,000 ML IV SCH (04:59)
[2023-11-24] MEDS: KETOROLAC 15 MG/ML 1 ML VIAL IVP SCH ×2 (05:53→11:26)
[2023-11-24] MEDS: HEPARIN SODIUM,PORCINE 5,000 UNIT/ML 1 ML VIAL SQ SCH (07:58)
[2023-11-24 08:15] VITALS: BP 114/65; RESP 16; TEMP 98.2
--- NOTE | 2023-11-24 15:26 | P.DS ---
Providers Attending physician: Dakota Guerra MD Primary care physician: [facility] Hospital Course: This is a 63-year-old male with history of BPH, underwent a robotic simple prostatectomy on November 23. Please see op note dated November 23 for surgery details. Patient was admitted to the hospital postoperatively. He was discharged home on postop day #1, at time of discharge he was tolerating a diet, ambulating and pain was controlled Patient Condition at Discharge: Fair Plan - Discharge Summary Discharge Rx Participant: Yes New Discharge Prescriptions: New Ketorolac [Toradol] 10 mg PO Q6HR PRN #15 tab PRN Reason: Pain Ciprofloxacin HCl [Cipro] 250 mg PO Q12HR #6 tablet No Action Doxazosin [Cardura] 4 mg PO HS Atorvastatin [Lipitor] 20 mg PO HS Apixaban [Eliquis Starter Pack (for VTE)] 5 mg PO BID Discharge Medication List Doxazosin [Cardura] 4 mg PO HS 08/23/16 [History] Atorvastatin [Lipitor] 20 mg PO HS 12/29/22 [History] Apixaban [Eliquis Starter Pack (for VTE)] 5 mg PO BID 11/16/23 [History] Ciprofloxacin HCl [Cipro] 250 mg PO Q12HR #6 tablet 11/24/23 [Rx] Ketorolac [Toradol] 10 mg PO Q6HR PRN #15 tab 11/24/23 [Rx] Follow up Appointment(s)/Referral(s): Dakota Guerra MD [STAFF PHYSICIAN] - 1 Week Patient Instructions/Handouts: Robot Assisted Laparoscopic Prostatectomy (DC) Discharge Disposition: HOME SELF-CARE
== END 2023-11-24 13:56 | disposition home or self-care (01) ==
LOC: OR 05:33 → 4SSUR 10:31 → OR 11-24 13:56
PROVIDERS: ATTEND Urology
DX: N40.0 Benign prostatic hyperplasia without lower urinary tract symptoms (principal); Z85.46 Personal history of malignant neoplasm of prostate; Z79.899 Other long term (current) drug therapy
CPT/HCPCS: 55867; J1644 ×2; J1100; J0690; J2405; J1885 ×2; J1170; J0665; 88307

== ENCOUNTER → 2024-07-09 | Outpatient (CLI) | payer BC ==
--- NOTE | 2024-07-30 13:38 | CT ---
Patient: Lev Lobato D Ordering Physician: Unknown, Unknown ID: [id number] Phone, Pager: Phone: N/A Pager: N/A : 1960 Age/Gender: 63Y, M Primary Location: N/A Procedure: CT abdomen wo con Study Date: 07/09/2024 4:43:00 PM EXAMINATION TYPE: CT abdomen wo con CT DLP: 461 mGycm, Automated exposure control for dose reduction was used. DATE OF EXAM: 07/09/2024 7:56 PM COMPARISON: 05/31/2023 CLINICAL INDICATION: f/u rt renal ca and hx of rt nephrectomy. TECHNIQUE: Axial CT abdomen wo con;Sagittal and coronal reformats were created on a separate worksta tion. Contrast used: mL of , (none if empty) Oral contrast used: (none if empty) FINDINGS: LOWER CHEST: Unremarkable ABDOMEN LIVER: Simple appearing cyst near the gallbladder fossa. GALLBLADDER AND BILE DUCTS: Unremarkable. PANCREAS: Unremarkable. SPLEEN: Unremarkable. ADRENAL GLANDS: Unremarkable. KIDNEYS AND URETERS: Surgically absent right kidney without evidence for organizing fluid collection, mass or lymphadenopathy. No evidence of left hydronephrosis. 13 left 4 mm calculus. STOMACH AND BOWEL: No evidence of bowel obstruction. The appendix is normal.r PERITONEUM/RETROPERITONEUM: No evidence of pneumoperitoneum or free fluid. VASCULATURE: Mild atherosclerotic calcifications are present throughout the abdominal aorta and its b ranches. No evidence of aortic aneurysm. MUSCULOSKELETAL: No acute osseous abnormalities LYMPH NODES: No gross evidence for lymphadenopathy. SOFT TISSUE/ABDOMINAL WALL: Fat-containing umbilical hernia. IMPRESSION: 1. Right nephrectomy without evidence for lymphadenopathy or surgical bed mass. 2. Nonobstructing left renal calculus.
== END | disposition home or self-care (01) ==
LOC: RADCTMAIN 16:45
PROVIDERS: ATTEND Urology
DX: C64.1 Malignant neoplasm of right kidney, except renal pelvis (principal); N20.0 Calculus of kidney; Z90.5 Acquired absence of kidney
CPT/HCPCS: 74150